=== PATIENT | female | born 1960 | race Caucasian/White ===

== ENCOUNTER 2018-06-26 15:04 | Day surgery (SDC) | payer BC ==
[~2018-06-26 15:04] MED LIST: Dexamethasone 20 MG/5 ML VIAL ONE; Glycopyrrolate 0.2 MG/ML 5 ML SYRINGE ONE; Lidocaine 1% PF 5 ML VIAL ONE; Ondansetron HCl/PF 4 MG/2 ML Vial ONE; PROPOFOL 200 MG/20 ML VIAL ONE; Succinylcholine Chloride 20 MG/ML 10 ml SYRINGE FS ONE; ePHEDrine/0.9% NaCl/PF SYRINGE 50 mg/10 ml ONE
[2018-06-26] MEDS ORDERED: ISOVUE-370 76%-LOCM 1 ML ONE (15:21)
[2018-06-26] MEDS ORDERED: Ondansetron HCl/PF 4 MG/2 ML Vial ONE (15:30)
[2018-06-26 15:32] LABS: #Monocytes 1.5 thou/uL (0.11-0.59); #Neutrophils 8.8 thou/uL (1.40-6.50); %Basophils 0.2 % (0.0-1.0); %Eosinophils 0.2 % (0.0-10.0); %Monocytes 12.9 % (0.0-10.0); %Neutrophils 77.7 % (42.0-75.0); Hemoglobin 12.6 g/dL (12.0-16.0); Mean Corpuscular Hemoglobin 31.6 pg (27.0-31.0); Mean Corpuscular Volume 93.2 fL (78.0-98.0); Mean Platelet Volume 7.1 fL (7.4-10.4); Platelet Count 268 thou/uL (130-400); RBC Distribution Width 11.1 % (11.5-14.5); Red Blood Cell (RBC) Count 3.99 mill/uL (4.20-5.40); White Blood Cell (WBC) Count 11.3 thou/uL (4.8-10.8)
[2018-06-26 15:54] LABS: ALT (SGPT) 16 U/L (8-55); AST (SGOT) 18 U/L (5-34); Alkaline Phosphatase 73 U/L (40-150); Anion Gap 11 mmol/L (10-20); BUN (Urea Nitrogen) 10 mg/dL (9.8-20.1); Bilirubin, Total 0.6 mg/dL (0.2-1.2); Calc. Creatinine Clearance 0 mL/min (70-130); Calcium 9.3 mg/dL (7.8-10.44); Carbon Dioxide 29 mmol/L (23-31); Chloride 100 mmol/L (98-107); Estimated GFR-MDRD 74; Globulin 2.8 g/dL (2.4-3.5); Glucose 109 mg/dL (80-115); Lipase 6 U/L (8-78); Potassium 4.3 mmol/L (3.5-5.1); Protein, Total 6.8 g/dL (6.0-8.3); Sodium 136 mmol/L (136-145)
--- NOTE | 2018-06-26 16:39 | CT ---
CT OF ABDOMEN AND PELVIS PERFORMED WITH INTRAVENOUS CONTRAST ENHANCEMENT: 06/26/18 HISTORY: Abdominal pain localizing more to the right side. The lung bases show a noncalcified left lower lobe pulmonary nodule measuring 7 to 8 mm in size. No i nfiltrative process. The liver, spleen, pancreas and gallbladder regions all appear unremarkable. Right and left adrenal glands and right and left kidneys are normal in size. No significant periaorti c or mesenteric adenopathy. CT OF PELVIS PERFORMED WITH CONTRAST ENHANCEMENT: There are inflammatory changes surrounding the appendix with associated small appendicoliths. There i s no evidence of abscess or free fluid. IMPRESSION: 1. CT findings compatible with appendicitis. 2. 8 mm left lower lobe noncalcified pulmonary nodule. As initial workup of this, I would sugges t a complete CT of the chest on a nonemergent basis which will be helpful in determining what further workup is needed and what type of followup may be needed. Findings telephoned to Dr. Huizar at the time of this dictation. POS: SHRUTHI
[2018-06-26] MEDS ORDERED: cefOXitin 2 GM in Sodium Chloride 0.9% 100 ML IVPB SCH (17:15)
[2018-06-26 17:33] LABS: Bilirubin Negative (Negative); Blood, Urine Moderate (Negative); Clarity CLEAR (Clear); Glucose, Urine (Dipstick) Negative (Negative); Leukocyte Moderate (Negative); Nitrite Negative (Negative); Protein, Urine (Dipstick) Negative (Neg-Trace); Specific Gravity, Urine 1.012 (1.002-1.036); Urobilinogen 0.2 mg/dL (0.2-1.0); pH, Urine 6.5 (5.0-9.0)
[2018-06-26 17:39] LABS: Bacteria/HPF None Seen HPF (None Seen); Hyaline Casts/LPF 0-3 HYALINE CAST LPF (0-3 Hyaline); Pathc Cast-AUWi Flag 0.29 (0-2.49); Squamous Epithelial 0-3 HPF (0-3)
--- NOTE | 2018-06-26 18:11 | CON ---
DATE OF CONSULTATION: 06/26/2018 SURGICAL CONSULT CHIEF COMPLAINT: Right lower quadrant abdominal pain. HISTORY OF PRESENT ILLNESS: The patient is a 57-year-old very pleasant white female. She is from [facility] and just flew into town this morning to visit her daughter who lives here in town. She de veloped lower abdominal pain last night and thought that she was constipated. Unfortunately, the jacquie n has become progressive and localized in the right lower quadrant. She presented to the emergency r oom where she underwent evaluation. She was noted to have a leukocytosis with a white blood cell cou nt of 11.5. CT scan was obtained with findings consistent with acute appendicitis. PAST MEDICAL HISTORY: Multiple sclerosis. This leads to some balance issues as well as urinary inco ntinence. She was diagnosed with this in 2011. CURRENT MEDICATIONS: Aubagio (for MS), citalopram, modafinil. ALLERGIES: No known drug allergies. PAST SURGICAL HISTORY: Cervical spine surgery about 4 years ago. History of pilonidal cyst surgery and bilateral arthroscopic knee surgery. PERSONAL AND SOCIAL HISTORY: She is with 2 children. She lives in [place]. She has no t smoked for the past 15 years. She drinks alcohol rarely. REVIEW OF SYSTEMS: Otherwise, unremarkable. FAMILY HISTORY: Noncontributory. PHYSICAL EXAMINATION: VITAL SIGNS: She is afebrile. Vital signs within normal limits. GENERAL: She is a well-developed, well-nourished pleasant white female, resting in bed, in no acute distress. She is alert and oriented x3. HEENT: Unremarkable. NECK: Supple without mass or tenderness. LUNGS: Clear to auscultation throughout. CARDIAC: Regular rate and rhythm without murmur. ABDOMEN: Soft with focal tenderness and obvious guarding in the right lower quadrant. EXTREMITIES: Unremarkable. ASSESSMENT: The patient with findings typical of acute appendicitis. PLAN: Laparoscopic appendectomy. I have discussed the operation in detail with the patient as well as potential risks. She understands and agrees to proceed with surgery at this time.
[2018-06-26] MEDS ORDERED: Bupivacaine/Epinephrine 0.25% 30 ML VIAL ONE (19:22)
[2018-06-26] MEDS ORDERED: Fentanyl 100 MCG/2 ML VIAL ONE (19:43)
[2018-06-26] MEDS ORDERED: Midazolam HCl 2 mg/2 ml Vial ONE (19:43)
[2018-06-26] MEDS ORDERED: HYDROmorphone 0.5 MG/0.5 ML SYRINGE ONE (19:48)
--- NOTE | 2018-06-27 16:58 | OP ---
DATE OF PROCEDURE: 06/26/2018 PREOPERATIVE DIAGNOSIS: Acute appendicitis. POSTOPERATIVE DIAGNOSIS: Acute appendicitis. OPERATION PERFORMED: Laparoscopic appendectomy. SURGEON: Pietro Benítez M.D. ANESTHESIA: General endotracheal. INDICATIONS: The patient is a 57-year-old white female from [place], has multiple sclerosis. S he presented today with findings of typical of acute appendicitis. She is taken to the operating thi s time for laparoscopic appendectomy. PROCEDURE IN DETAIL: Informed consent was obtained. The patient was taken to the Operating Room where general endotracheal anesthesia was obtained with the patient in the supine position. Local anesthet ic was infiltrated into the intended incision sites, and 5-mm infraumbilical incision was created. Ve ress needle was passed into the peritoneal cavity. Pneumoperitoneum was established using carbon diox yordy up to a pressure of 15 mmHg. A 5-mm trocar port was passed through the same incision. Laparoscopi c camera was passed through this port. Under direct vision, two additional ports were placed includin g a 5-mm right subcostal port and a 10/12-mm suprapubic port. Attention was then turned to the right lower quadrant. After mobilization of bowel, there was obvious evidence of acute appendicitis. The a ppendix was gently mobilized away from the surrounding structures, and the mesoappendix was grasped. It was divided with the tripolar cautery so as to skeletonize the base of the appendix. The appendix was then divided with the Endo YOKO stapler to include a small cuff of cecum. Staple lines were intact . The appendix was placed into a laparoscopic pouch and retrieved through the suprapubic port. The f ascia at this port was approximated with 0 Vicryl suture and the Granee needle. Port was replaced, an d the right lower quadrant was inspected. Hemostasis was found to be intact, and the area was irriga tabby. Staple line was also noted to be intact. All ports and instruments were removed under direct vis ion. Pneumoperitoneum was carefully evacuated. 0.25% Marcaine with epinephrine was infiltrated into e ach port site. Skin edges were approximated with 4-0 Prolene subcuticular suture as well as Steri-Str ips and Mastisol. Band-aid dressings were applied. There were no complications. The patient tolerated the procedure well and was taken to Recovery in stable condition. FINDINGS: She had a severely inflamed appendix, but no evidence of perforation. The operation was p erformed uneventfully. There were no complications and essentially no blood loss. The patient brook[place] ated the procedure well and was taken to recovery room in stable condition.
== END 2018-06-26 21:55 | disposition home or self-care (01) ==
LOC: ERS 15:04 → EDBD 15:04 → SDC/OP 18:43
PROVIDERS: ATTEND Specialist
PROC: 0DTJ4ZZ Resection of Appendix, Percutaneous Endoscopic Approach (ICD-10-PCS; principal; 2018-06-26)
DX: K35.80 Unspecified acute appendicitis (principal); G35 Multiple sclerosis; R32 Unspecified urinary incontinence; Z87.891 Personal history of nicotine dependence; Z79.899 Other long term (current) drug therapy
CPT/HCPCS: 74177; 80053; 81003; 81015; 83690; 85025; 88304; 96361; 96365; 96375; J0694; J1100; J1170; J2001; J2250; J2270; J2405; J2704; J3010; J7050